=== PATIENT | female | born 1990 | race Caucasian/White ===

== ENCOUNTER 2017-08-30 14:42 | Emergency (ER) | payer OTHER ==
[~2017-08-30] VITALS: Ht 162.6 cm; Wt 104.2 kg
[2017-08-30 14:49] VITALS: BP 118/84
== END 2017-08-30 18:10 | disposition home or self-care (01) ==
LOC: ED 18:04
DX: R51 Headache (principal)
CPT/HCPCS: 99281

== ENCOUNTER 2018-03-15 19:18 | Emergency (ER) | payer MEDICAID, OTHER ==
[~2018-03-15] VITALS: Ht 162.6 cm; Wt 110.0 kg
[2018-03-15 19:35] VITALS: BP 133/85
[2018-03-15] MEDS ORDERED: DIPHENHYDRAMINE 25 MG CAPSULE PO ONE (20:30)
[2018-03-15] MEDS ORDERED: FAMOTIDINE 20 MG TABLET PO ONE (20:30)
[2018-03-15] MEDS ORDERED: DIPHENHYDRAMINE 25 MG CAPSULE ONE (20:37)
[2018-03-15] MEDS ORDERED: FAMOTIDINE 20 MG TABLET ONE (20:37)
== END 2018-03-15 21:05 | disposition home or self-care (01) ==
LOC: ED 20:14
DX: S80.862A Insect bite (nonvenomous), left lower leg, initial encounter (principal); S80.861A Insect bite (nonvenomous), right lower leg, initial encounter; T78.40XA Allergy, unspecified, initial encounter; F17.210 Nicotine dependence, cigarettes, uncomplicated; W57.XXXA Bitten or stung by nonvenomous insect and other nonvenomous arthropods, initial encounter; Y93.89 Activity, other specified; Y92.009 Unspecified place in unspecified non-institutional (private) residence as the place of occurrence of the external cause; Y99.8 Other external cause status
CPT/HCPCS: 99284; J7512; Q0163